=== PATIENT | male | born 1995 | race Hispanic/Latino ===

== ENCOUNTER 2020-04-01 14:19 | Emergency (ER) | payer SELFPAY ==
--- NOTE | 2020-04-01 14:21 | ED.URI ---
HPI - URI/Sore Throat General Chief Complaint: Nausea/Vomiting/Diarrhea Stated Complaint: vomiting/sob Time Seen by Provider: 04/01/20 14:29 Source: patient and RN notes reviewed Mode of arrival: ambulatory Limitations: no limitations History of Present Illness HPI Narrative: 25-year-old male presents with concern for return to work after being exposed to coronavirus 1 week ago. Reports he started having symptoms 5 days ago that included body aches, nausea, diarrhea. Reports his symptoms have improved. He denies taking his temperature, does not know if he had a fever. Reports he had a test done yesterday, does not know the results. He is unable to return to work without a note from a doctor. MD elicited complaint: other (Exposure to coronavirus) Related Data Home Medications Medication Instructions Recorded Confirmed No Home Medications 04/01/20 04/01/20 Allergies Allergy/AdvReac Type Severity Reaction Status Date / Time No Known Allergies Allergy Verified 04/01/20 14:28 Review of Systems Review of Systems: Narrative: CONSTITUTIONAL: Denies malaise, chills, sweats, or fever. EYES: Denies visual changes, redness, or discharge. ENT: Denies rhinorrhea, congestion, sinus pain, otalgia or sore throat. CARDIOVASCULAR: Denies chest pain, palpitations, or edema. RESPIRATORY: Denies cough or dyspnea. GASTROINTESTINAL: Denies abdominal pain, nausea, vomiting, diarrhea, bloody, or mucous stools. GENITOURINARY: Denies dysuria or hematuria. SKIN: Denies rash or itching. MUSCULOSKELETAL: Denies back pain, joint pain, or myalgia. NEUROLOGIC: Denies numbness, weakness, or headache. PSYCHIATRIC: Denies anxiety or depression. All systems reviewed & are unremarkable except as noted in HPI and below PMFSH Comments At time of signature, agree with nursing past medical, surgical, social and family history. There is no relevant family history pertinent to the presenting complaint Exam Narrative: Exam Narrative: GENERAL: Well-appearing, well-nourished, and in no acute distress. HEAD: Normocephalic, atraumatic. EYES: PERRLA, conjunctivae clear ENT: Nares clear, turbinates pink, no rhinorrhea or epistaxis. Mucous membranes moist. TM pearly live with sharp light reflex bilaterally; no tragal tenderness. Oropharynx without erythema or lesions. Tonsils not enlarged and without exudate. NECK: Supple. No lymphadenopathy. CHEST: No respiratory distress. Clear to auscultation. No bony deformities, no asymmetry. Speaks in full sentences. HEART: Regular rate and rhythm. No murmur heard. SKIN: Warm, dry, no rash. NEURO: Alert and oriented x3. PSYCH: Normal mood and affect Course Course Emergency Course: Patient is aware of diagnosis, understands and agrees to treatment plan. Anticipatory guidance given. Patient agrees to follow-up as directed and is aware of reasons to seek care at the emergency department. Portions of this record may have been created with voice recognition software Vital Signs Vital signs: Vital Signs Temperature 97.8 F 04/01/20 14: Pulse Rate 80 04/01/20 14: Respiratory Rate 16 04/01/20 14:26 Blood Pressure 148/96 H 04/01/20 14:26 Pulse Oximetry 100 04/01/20 14:26 Temperature 97.8 F 04/01/20 14:26 Pulse Rate 80 04/01/20 14: Respiratory Rate 16 04/01/20 14:26 Blood Pressure 148/96 H 04/01/20 14:26 Pulse Oximetry 100 04/01/20 14:26 Reviewed. Pt has been instructed to follow up with his primary care provider within the next week regarding his elevated blood pressure today. MDM - URI/Sore Throat MDM Narrative Medical decision making narrative: Differential diagnosis considered: Spring virus, strep pharyngitis, allergic rhinitis, upper respiratory tract infection, sinusitis, rhinosinusitis, nasopharyngitis. viral pharyngitis, otitis media, otitis externa, pneumonia, bronchitis, viral cough syndrome, viral syndrome, and influenza. Exam findings show no acute concerns or changes; patie
[2020-04-01 14:26] VITALS: BP 148/96; PULSE 80; RESP 16; TEMP 36.6; O2SAT 100
== END 2020-04-01 14:44 | disposition home or self-care (01) ==
PROVIDERS: Emergency Provider Nurse Practitioner
DX: Z20.828 Contact with and (suspected) exposure to other viral communicable diseases (principal)
CPT/HCPCS: 99211; G0463

== ENCOUNTER 2020-07-16 10:01 | Emergency (ER) | payer BC, SELFPAY ==
[2020-07-16 10:14] VITALS: BP 118/84; PULSE 73; RESP 16; TEMP 36.8; O2SAT 100
--- NOTE | 2020-07-16 10:32 | ED.GENADULT ---
HPI - General Adult General Chief complaint: Upper Respiratory Infection Stated complaint: loss of smell Source: patient Mode of arrival: ambulatory Limitations: no limitations History of Present Illness HPI narrative: 25-year-old male presents to urgent care with complaints of loss of smell and intermittent diarrhea since this morning. Patient reports he is concerned about Covid. Patient denies cough, shortness of breath, wheezing, fever, body aches, chills, nausea or vomiting. Patient is not tried taking any [id number] medications for his symptoms. Patient is non-smoker. Patient reports that a co-worker tested (+) for COVID 5 days ago. Patient denies recent travel. Onset (ago): hour(s) (6) Relieving factors: none Exacerbating factors: none Treatments prior to arrival: none Related Data Home Medications Medication Instructions Recorded Confirmed No Home Medications 04/01/20 07/16/20 Allergies Allergy/AdvReac Type Severity Reaction Status Date / Time No Known Allergies Allergy Verified 04/01/20 14:28 Review of Systems Constitutional: Constitutional: Denies chills, Denies fatigue, Denies fever(s) and Denies weakness ENT: Denies dysphagia, Denies dizziness and Denies sore throat Comments: loss of smell Cardiovascular: Cardiovascular: Denies chest pain, Denies rapid heart rate and Denies radiating jaw, neck or arm pain Respiratory: Respiratory: Denies chest congestion, Denies cough, Denies dyspnea and Denies wheezing Gastrointestinal: Gastrointestinal: Denies abdominal pain, Denies constipation, Reports diarrhea, Denies nausea and Denies vomiting Integumentary/Breasts: Skin/Breast: Denies rash Neurologic: Denies vertigo, Denies dizziness and Denies syncope Endocrine: Endocrine: Denies fatigue PMFSH Family History Family History (Updated 07/16/20 @ 10:34 by Mildred Restrepo APRN) Father Diabetes mellitus Social History Social History (Updated 07/16/20 @ 10:34 by Mildred Restrepo APRN) Smoking status: Never smoker Comments At time of signature, I agree with nursing past medical, surgical, social and family history. There is no relevant family history pertinent to the presenting complaint. Exam Const: General: no acute distress and alert Nutritional Appearance: well nourished Orientation/consciousness: patient oriented x3 HENMT: Head: normal to inspection Ears: external ears normal Mouth: Yes Normal oral and palatal mucosa present, Yes lip normal and Yes moist mucous membranes Throat: posterior oropharynx normal and uvula midline Neck: Neck: normal visual inspection Resp: Effort & Inspection: normal respiratory effort, not labored, not tachypneic and no use of accessory muscles Auscultation: clear to auscultation bilaterally, no rales, no rhonchi and no wheezes Cardio: Rate: regular rate, not bradycardic and not tachycardic Rhythm: regular rhythm and regular rhythm Heart sounds: no murmurs GI: GI Palp: Yes Soft to palpation, No Tenderness to palpation present (GI), No Guarding due to palpation present (GI) and No Rigid due to palpation Auscultation: normal bowel sounds Skin: General skin exam: normal color, no jaundice and no pallor Rashes: no rashes Wounds: no wounds Neuro: General: patient oriented x3 and moves all extremities Speech: normal speech Extrem: General: normal to inspection Psych: Appearance: grossly normal Mental Status: mental status grossly normal Affect: normal affect Attitude: cooperative Thought content: Yes Normal thought content present Course Vital Signs Vital signs: Vital Signs Temperature 36.8 C 07/16/20 10:14 Pulse Rate 73 07/16/20 10:14 Respiratory Rate 16 07/16/20 10:14 Blood Pressure 118/84 07/16/20 10:14 Pulse Oximetry 100 07/16/20 10:14 Temperature 36.8 C 07/16/20 10:14 Pulse Rate 73 07/16/20 10:14 Respiratory Rate 16 07/16/20 10:14 Blood Pressure 118/84 07/16/20 10:14 Pulse Oximetry 100 07/16/20
[2020-07-17 19:17] LABS: SARS-CoV-2 RNA PCR Negative
== END 2020-07-16 10:50 | disposition home or self-care (01) ==
PROVIDERS: Emergency Provider Nurse Practitioner Family
DX: R43.9 Unspecified disturbances of smell and taste (principal); Z20.822 Contact with and (suspected) exposure to COVID-19
CPT/HCPCS: 87426; 99213; C9803; G0463; U0003; U0005